=== PATIENT | female | born 2000 | race Two or more races ===

== ENCOUNTER 2021-08-06 11:39 | Emergency (ER) | payer SELFPAY ==
[2021-08-06 11:46] VITALS: BP 121/78
--- NOTE | 2021-08-06 12:21 | ED Physician Documentation ---
PD HPI LOWER EXT INJURY - Stated complaint Stated Complaint: left knee problem - Chief complaint Chief Complaint: Ext Problem - History obtained from History obtained from: Patient - Additional information Additional information: For the last couple of years she has had episodic left knee pain. It will come and go when she will have a bad day but then it will bit better. There is no specific injury. Over the last week or 2 the pain is more severe and more constant. It is anterolateral. Hurts most to walk and go up stairs. Review of Systems Constitutional: denies: Fever, Chills Throat: reports: Reviewed and negative Cardiac: reports: Reviewed and negative PD PAST MEDICAL HISTORY - Past Surgical History Past Surgical History: Yes - Present Medications Home Medications: Ambulatory Orders Medication Instructions Recorded Confirmed Benzonatate [Tessalon Perle] 100 - 200 mg PO TID PRN #30 capsule 04/14/19 Cetirizine HCl/Pseudoephedrine 1 each PO BID PRN #30 tab.er.[id number] 04/14/19 [Zyrtec-D Tablet] Meloxicam [Mobic] 7.5 mg PO BID PRN #20 tablet 08/06/21 - Allergies Allergies/Adverse Reactions: Allergies Allergy/AdvReac Type Severity Reaction Status Date / Time No Known Drug Allergies Allergy Verified 08/06/21 11:43 - Social History Does the pt smoke?: No Smoking Status: Never smoker Does the pt drink ETOH?: No Does the pt have substance abuse?: No - Immunizations Immunizations are current?: Yes - POLST Patient has POLST: Yes PD ED PE NORMAL - Vitals Vital signs reviewed: Yes - General General: Alert and oriented X 3, No acute distress - Extremities Extremities: Other (Focused examination of the left knee demonstrates a small effusion, no warmth or redness. No deformity. Mildly tender over the lateral joint line and tibial plateau. Ligamentous testing is intact and painless but grind testing is quite painful.) - Neuro Neuro: Alert and oriented X 3, Normal speech Results - Vitals Vitals: Vital Signs - 24 hr 08/06/21 11:44 Temperature 37.2 C Heart Rate 72 Respiratory 18 Rate Blood Pressure 121/78 O2 Saturation 99 Oxygen O2 Source Room air PD MEDICAL DECISION MAKING - ED course ED course: 20-year-old woman presents with a longstanding knee issue which is most likely a meniscus issue based on exam Offered a knee immobilizer but she would prefer to buy one [id number] due to cost. She is currently uninsured and plans to set up with insurance before following up. Departure - Departure Disposition: 01 Home, Self Care Clinical Impression: Knee internal derangement Condition: Good Record reviewed to determine appropriate education?: Yes Instructions: ED Meniscal Injury Knee Poss Follow-Up: [facility] [Provider Group] Prescriptions: Meloxicam [Mobic] 7.5 mg PO BID PRN #20 tablet PRN Reason: Pain Comments: As discussed, based on your exam I suspect you have a lateral meniscus issue in your left knee. After you are set up with your new insurance you should follow- up with an orthopedist. The phone numbers on this form. Until then by a knee immobilizer such as: TANDCF Knee Immobilizer Secure Comfort Knee Brace & Stabilizer for Recovery,Knee Fractures,Instability, ACL,MCL,Meniscus Tear,Arthritis,Displacement & Post Surgery Recovery,Height 17.32" [place] Available on [employer] Forms: Activity restrictions Discharge Date/Time: 08/06/21 12:33
--- NOTE | 2021-08-06 13:08 | XRAY Report ---
PROCEDURE: Knee 4 View LT INDICATIONS: Trauma TECHNIQUE: 4 views of the left knee(s) were acquired. COMPARISON: None. FINDINGS: Bones: No fractures or dislocations. No suspicious bony lesions. Soft tissues: Small suprapatellar joint effusion is seen. No suspicious soft tissue calcifications. IMPRESSION: No gross acute left knee fracture or dislocation. Small suprapatellar joint effusion. Reviewed by: Wilner Bishop MD on 08/06/2021 1:07 PM PDT Approved by: Wilner Bishop MD on 08/06/2021 1:07 PM PDT Station ID: [id number]
== END 2021-08-06 12:33 | disposition home or self-care (01) ==
LOC: ED 11:39
DX: M23.92 Unspecified internal derangement of left knee (principal)
CPT/HCPCS: 99283

== ENCOUNTER 2022-01-17 10:44 | Outpatient (CLI) | payer OTHER ==
--- NOTE | 2022-01-17 11:21 | XRAY Report ---
PROCEDURE: Knee 3 View LT INDICATIONS: CONTUSION OF LEFT KNEE INITIAL ENCOUNTER TECHNIQUE: 3 views of the left knee(s) were acquired. COMPARISON: None. FINDINGS: Bones: No fractures or dislocations. No suspicious bony lesions. Soft tissues: No joint effusion. No suspicious soft tissue calcifications. IMPRESSION: Negative left knee. Reviewed by: Roberto Carlos Cornejo MD on 01/17/2022 11:20 AM PST Approved by: Roberto Carlos Cornejo MD on 01/17/2022 11:20 AM PST Station ID: [id number]
== END 2022-01-17 10:45 | disposition home or self-care (01) ==
LOC: DI 10:44
PROVIDERS: ATTEND Physician Assistant
DX: S80.02XA Contusion of left knee, initial encounter (principal)

== ENCOUNTER 2022-06-07 12:02 | Emergency (ER) | payer OTHER ==
[2022-06-07 12:20] VITALS: BP 143/78
[2022-06-07] MEDS ORDERED: LIDOCAINE PATCH 5% TOP STA (12:36)
[2022-06-07] MEDS ORDERED: CYCLOBENZAPRINE 10 MG TABLET PO STA (12:37)
--- NOTE | 2022-06-07 12:41 | ED Physician Documentation ---
PD HPI BACK PAIN - Stated complaint Stated Complaint: BACK PX - Chief complaint Chief Complaint: Back Pain - History obtained from History obtained from: Patient - Additional information Additional information: Patient is a 21-year-old female presenting for evaluation of right upper back pain that joe been present for the past 3 days. Patient states that prior to that she was moving furniture and reports pain is worse with certain movements Positions and she notices it more at night. She has tried ibuprofen without any improvement. She denies lower back pain, dysuria, bowel or bladder inconti nence. She denies any radiation to her neck or to her extremities. 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 Review of Systems Constitutional: denies: Fever Cardiac: denies: Chest pain / pressure Respiratory: denies: Dyspnea GI: denies: Vomiting Musculoskeletal: reports: Back pain. denies: Neck pain Neurologic: denies: Headache PD PAST MEDICAL HISTORY - Past Surgical History Past Surgical History: Yes - Present Medications Home Medications: Ambulatory Orders Medication Instructions Recorded Confirmed Cyclobenzaprine [Flexeril] 10 mg PO TID PRN #20 tablet 06/07/22 Lidocaine Patch 5% [Lidoderm Patch] 1 patch TOP DAILY PRN #10 patch 06/07/22 - Allergies Allergies/Adverse Reactions: Allergies Allergy/AdvReac Type Severity Reaction Status Date / Time No Known Drug Allergies Allergy Verified 06/07/22 12:19 - Social History Does the pt smoke?: No Smoking Status: Never smoker Does the pt drink ETOH?: No Does the pt have substance abuse?: No - Immunizations Immunizations are current?: Yes - POLST Patient has POLST: Yes PD ED PE NORMAL - General General: Alert and oriented X 3, No acute distress, Well developed/nourished - HEENT HEENT: Atraumatic, Moist mucous membranes, Pharynx benign - Neck Neck: Supple, no meningeal sign, No bony TTP - Cardiac Cardiac: RRR, Strong equal pulses - Respiratory Respiratory: No respiratory distress, Clear bilaterally - Abdomen Abdomen: Normal bowel sounds, Soft, Non tender, Non distended - Back Back: No CVA TTP, No spinal TTP, Other (Tenderness to right upper thoracic region with no erythema or swelling) - Derm Derm: Warm and dry - Extremities Extremities: No edema - Neuro Neuro: Alert and oriented X 3, No motor deficit, No sensory deficit, Normal speech PD ED PE EXPANDED - Back Back visual: 1 - tenderness Results - Vitals Vitals: Vital Signs - 24 hr 06/07/22 12:15 Temperature 37.0 C Heart Rate 65 Respiratory 18 Rate Blood Pressure 143/78 H O2 Saturation 99 Oxygen O2 Source Room air PD Medical Decision Making - ED course Complexity details: reviewed results, re-evaluated patient, d/w patient ED course: Patient is a 21-year-old female presenting for evaluation of Right upper thoracic pain for the past several days in the setting of recently lifting and moving furniture. Pain is reproducible. It is also worse with certain movements. She has no midline tenderness to the cervical or thoracic spine. She has no lower back tenderness. She denies concerns for . Her abdo adenike exam is benign. She has good strength in upper and lower extremities with no Abnormal neuro findings. She does not take blood thinners and does not have a fever. Suspect that her symptoms are likely related to muscle or ligament injury. I discussed Trial of muscle relaxers and lidocaine patch which she is agreeable to. She is aware of need for close outpatient follow-up as well as concerning symptoms to return for. Departure - Departure Disposition: 01 Home, Self Care Clinical Impression: Thoracic back pain Condition: Stable Instructions: ED Neck Back Pain General Prescriptions: Cyclobenzaprine [Flexeril] 10 mg PO TID PRN #20 tablet PRN Reason: Spasms Lidocaine Patch 5% [Lidoderm Patch] 1 patch TOP DAILY PRN #10 patch PRN Reason: pain Comments: Your symptoms are likely related to a strain of the muscles and ligaments in the upper back region from recently lifting furniture. I have sent prescriptions to [facility] including a muscle relaxer and a lidocaine patch.Please continue with anti-inflammatory such as ibuprofen or acetaminophen. I would recommend close follow-up with your primary care provider. You can also try ice versus heat.If you develop any worsening symptoms such as pain in a new location or worsening pain or new symptoms please return to the emergency department. Forms: Activity restrictions Discharge Date/Time: 06/07/22 13:18
== END 2022-06-07 13:18 | disposition home or self-care (01) ==
LOC: ED 12:02
DX: M54.6 Pain in thoracic spine (principal)
CPT/HCPCS: 99282; 99283; A9270

== ENCOUNTER 2022-08-02 14:11 | Outpatient (CLI) | payer OTHER ==
--- NOTE | 2022-08-05 09:03 | MRI Report ---
PROCEDURE: KNEE WO - LT INDICATIONS: PAIN IN LEFT KNEE TECHNIQUE: Noncontrast sagittal PD fast spin echo and T2 fast spin echo with fat saturation, sagittal 3-D gradie nt sequence with fat saturation; coronal T1 spin echo and PD fast spin echo with fat saturation, and axial PD fast spin echo with fat saturation through the knee. COMPARISON: X-ray left knee, 01/17/2022 and 07/29/2021. FINDINGS: Image quality: Excellent. Menisci: There is tear of the anterior root of the medial meniscus. There is a 1.4 x 1.9 x 1.0 cm pe rimeniscal cyst adjacent to the anterior root. Lateral meniscus admission normal morphology and inter nal signal. Cruciate ligaments: The anterior and posterior cruciate ligaments appear intact. Medial structures: The medial collateral ligament appears intact. The semimembranosus tendon insert ions and meniscocapsular junction appear intact. Visualized portions of the pes anserinus tendons ap pear normal. No abnormal bursal fluid. Lateral structures: The lateral collateral ligament and the biceps femoris tendon appear intact. Th e popliteus tendon appears normal. Iliotibial band appears normal. Anterior structures: The quadriceps and patellar tendons appear intact. There is low-grade quadricep s tendinitis and patellar tendinitis. Patellar alignment is normal. No femoral trochlear dysplasia or ventral trochlear prominence. No edema in the infrapatellar fat pad. Bones and cartilage: No bone marrow contusions or fractures. The cartilage of the medial and latera l femorotibial compartments, as well as the patellofemoral compartment, appears normal in thickness. Joint space: There is trace knee joint fluid. There is a tiny Toledo's cyst. Normal appearing synovi al plicae are incidentally noted. IMPRESSION: 1. Tear of the anterior root of the medial meniscus. 2. There is a 1.4 x 1.9 x 1.0 cm cyst adjacent to the anterior root of the medial meniscus, probably a meniscal cyst. A differential diagnosis is a ganglion cyst. 3. Low-grade quadriceps tendinitis and patellar tendinitis. Reviewed by: George Kendrick MD on 08/05/2022 9:01 AM PDT Approved by: George Kendrick MD on 08/05/2022 9:01 AM PDT Station ID: [id number]
== END 2022-08-02 14:12 | disposition home or self-care (01) ==
LOC: DI 14:11
PROVIDERS: ATTEND Student in an Organized Health Care Education/Training Program
DX: S83.242A Other tear of medial meniscus, current injury, left knee, initial encounter (principal); M25.862 Other specified joint disorders, left knee; M76.52 Patellar tendinitis, left knee; M76.892 Other specified enthesopathies of left lower limb, excluding foot